=== PATIENT | female | born 1990 | race Caucasian/White ===

== ENCOUNTER 2022-11-28 18:00 | Emergency (ER) | payer OTHER ==
[~2022-11-28] VITALS: Ht 165.1 cm; Wt 54.8 kg
[2022-11-28 18:10] VITALS: BP 136/85
[2022-11-28] MEDS ORDERED: TETANUS-DIPTH-ACEL PERTUSSIS 0.5ML SYR Tdap IM ONE (21:45)
[2022-11-28] MEDS ORDERED: AMOX-277 PO (21:51)
[2022-11-28] MEDS ORDERED: AMOXICILLIN/CLAVUL 875 MG TAB PO ONE (22:00)
== END 2022-11-28 22:14 | disposition home or self-care (01) ==
LOC: ER 18:07
DX: S61.451A Open bite of right hand, initial encounter (principal); Z90.89 Acquired absence of other organs; Z79.2 Long term (current) use of antibiotics; Z88.2 Allergy status to sulfonamides; W55.01XA Bitten by cat, initial encounter; Y93.89 Activity, other specified; Y92.89 Other specified places as the place of occurrence of the external cause; Y99.8 Other external cause status
CPT/HCPCS: 90471; 90715